=== PATIENT | female | born 1955 | race Caucasian/White ===

== ENCOUNTER 2016-10-05 09:05 | Emergency (ER) | payer MEDICARE, BC ==
[2016-10-05 09:22] VITALS: BP 137/84
--- NOTE | 2016-10-05 10:39 | EDM.PDOC ---
ED HPI GENERAL MEDICAL PROBLEM - General Chief Complaint: Skin Complaint Stated Complaint: POSSIBLE SHINGLES Time Seen by Provider: 10/05/16 09:56 Source of Information: Reports: Patient History Limitations: Reports: No Limitations - History of Present Illness INITIAL COMMENTS - FREE TEXT/NARRATIVE: This lady comes in because of several pustules on her buttocks and she thinks this may be shingles. She's been getting about 1 new pustule daily for the past 4 days. She says they mostly just itch. She's had shingles before and said it was a patch of similar pustules. 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: Neurological History: Reports: Other (See Below) Other Neuro History: passed out one time,b ut never found out why Psychiatric History: Reports: Depression Endocrine/Metabolic History: Reports: Hyperthyroidism - Past Surgical History Musculoskeletal Surgical History: Reports: Shoulder Surgery Social & Family History - Caffeine Use Caffeine Use: Reports: Coffee - Alcohol Use Days Per Week of Alcohol Use: 2 Number of Drinks Per Day: 2 Total Drinks Per Week: 4 - Recreational Drug Use Recreational Drug Use: No ED ROS GENERAL - Review of Systems Review Of Systems: ROS reveals no pertinent complaints other than HPI. ED EXAM, SKIN/RASH Exam: See Below Exam Limited By: No Limitations General Appearance: Alert, WD/WN Skin: Other (On the right buttocks actually nearly the right perianal area there is a group of about 6 pustules they're tiny about 1 mm and there's scattered over an area approximately 5 or 6 cm in diameter so widely scattered. There own each on a about 3 mm reddened face so these could actually be staph but they do not look like shingles. There is no cellulitis associated with this ) Course - Vital Signs Last Recorded V/S: Last Vital Signs Temp 36.2 C 10/05/16 09:31 Pulse 63 10/05/16 09:31 Resp 14 10/05/16 09:31 BP 137/84 10/05/16 09:31 Pulse Ox 97 10/05/16 09:31 Departure - Departure Time of Disposition: 10:37 Disposition: Home, Self-Care 01 Condition: fair Clinical Impression: Perianal rash - Discharge Information Forms: ED Department Discharge Additional Instructions: It's possible the rash could be a very mild case of shingles but it could also be a bacterial infection such as with staff. It's very localized so it should be treatable with an antibiotic ointment. Place the mupirocin ointment to the affected area about 3 times a day for up to one week. This should stop the spread of the pustules. If you feel like you're getting worse than followup with your Dr. or healthcare provider.
== END 2016-10-05 10:46 | disposition home or self-care (01) ==
LOC: JP.ED 09:05
DX: R21 Rash and other nonspecific skin eruption (principal); F32.9 Major depressive disorder, single episode, unspecified; E03.9 Hypothyroidism, unspecified; Z88.2 Allergy status to sulfonamides; Z79.899 Other long term (current) drug therapy; Z98.890 Other specified postprocedural states
CPT/HCPCS: 99282; 99283

== ENCOUNTER 2017-10-03 12:14 | Emergency (ER) | payer MEDICARE, BC ==
[2017-10-03 12:26] VITALS: BP 134/92
[2017-10-03] MEDS ORDERED: cefTRIAXone 1 GM, Lidocaine 1% 2.1 ML IM ONE ×2 (12:49)
--- NOTE | 2017-10-03 12:58 | EDM.PDOC ---
ED HPI GENERAL MEDICAL PROBLEM - General Chief Complaint: Genitourinary Problem Stated Complaint: UTI Time Seen by Provider: 10/03/17 12:30 Source of Information: Reports: Patient History Limitations: Reports: No Limitations - History of Present Illness INITIAL COMMENTS - FREE TEXT/NARRATIVE: Maura presents today with complaints of urinary frequency, pain with urination , bilateral flank pain for two days. She also reports blood in urine since last night. She denies fever or chills, nausea, vomiting or other complaints. She denies frequent UTIs. She has tried pushing oral fluids to help her symptoms. 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: Neurological History: Reports: Other (See Below) Other Neuro History: passed out one time,b ut never found out why Psychiatric History: Reports: Depression Endocrine/Metabolic History: Reports: Hyperthyroidism - Past Surgical History Musculoskeletal Surgical History: Reports: Arthroscopic Knee, Shoulder Surgery Social & Family History - Tobacco Use Smoking Status *Q: Never Smoker - Caffeine Use Caffeine Use: Reports: Coffee - Alcohol Use Days Per Week of Alcohol Use: 1 Number of Drinks Per Day: 2 Total Drinks Per Week: 2 - Recreational Drug Use Recreational Drug Use: No ED ROS GENERAL - Review of Systems Review Of Systems: See Below Constitutional: Denies: Fever, Chills, Malaise, Weakness HEENT: Reports: No Symptoms Respiratory: Denies: Shortness of Breath, Wheezing, Cough, Sputum Cardiovascular: Denies: Chest Pain, Dyspnea on Exertion, Edema, Lightheadedness , Palpitations, PND, Syncope Endocrine: Denies: No Symptoms GI/Abdominal: Denies: Abdominal Pain, Black Stool, Bloody Stool, Constipation, Diarrhea, Distension, Hematochezia, Nausea, Vomiting : Reports: Dysuria, Flank Pain, Frequency, Hematuria, Pain, Urgency, Urinary Retention. Denies: Discharge, Incontinence, Irregular Menses Musculoskeletal: Reports: No Symptoms Skin: Reports: No Symptoms Neurological: Denies: Confusion, Dizziness, Headache, Numbness, Tingling, Weakness Psychiatric: Reports: No Symptoms Hematologic/Lymphatic: Reports: No Symptoms Immunologic: Reports: No Symptoms ED EXAM, RENAL/ - Physical Exam Exam: See Below Text/Narrative:: Maura is an alert and oriented 61 year old female presenting today with complaints of urinary frequency, dysuria, hematuria, bilateral flank pain for 2 days. Pushing oral fluids did not help her symptoms. Exam Limited By: No Limitations General Appearance: Alert, WD/WN, Mild Distress Eye Exam: Bilateral Eye: EOMI, PERRL Ears: Normal External Exam, Normal Canal, Hearing Grossly Normal, Normal TMs Nose: Normal Inspection, Normal Mucosa, No Blood Throat/Mouth: Normal Inspection, Normal Lips, Normal Teeth, Normal Gums, Normal Oropharynx, Normal Voice, No Airway Compromise Head: Atraumatic, Normocephalic Neck: Normal Inspection, Supple, Non-Tender, Full Range of Motion. No: Lymphadenopathy (R), Lymphadenopathy (L) Respiratory/Chest: No Respiratory Distress, Lungs Clear, Normal Breath Sounds, No Accessory Muscle Use, Chest Non-Tender Cardiovascular: Normal Peripheral Pulses, Regular Rate, Rhythm, No Edema, No Murmur, No Rub GI/Abdominal: Normal Bowel Sounds, Soft, Non-Tender, No Distention Back Exam: Full Range of Motion, CVA Tenderness (R), CVA Tenderness (L). No: Decreased Range of Motion, Muscle Spasm Extremities: Normal Inspection, Normal Range of Motion, Non-Tender, No Pedal Edema, Normal Capillary Refill Neurological: Alert, Oriented, CN II-XII Intact, Normal Cognition, Normal Gait, Normal Reflexes, No Motor/Sensory Deficits Psychiatric: Normal Affect, Normal Mood Skin Exam: Warm, Dry, Intact, Normal Color, No Rash Lymphatic: No Adenopathy Course - Vital Signs Last Recorded V/S: Last Vital Signs Temp 36.0 C 10/03/17 12:29 Pulse 77 10/03/17 12:29 Resp 18 10/03/17 12:29 BP 134/92 H 10/03/17 12:29 Pulse Ox 99 10/03/17 12:29 - Orders/Labs/Meds Orders: Active Orders 24 hr Category Date Time Status CULTURE URINE [RM] Stat Lab 10/03/17 13:17 Received UA W/MICROSCOPIC [URIN] Stat Lab 10/03/17 12:20 Ordered Labs: Laboratory Tests 10/03/17 Range/Units 12:20 Urine Color Yellow Urine Appearance Cloudy Urine pH 8.0 (4.5-8.0) Ur Specific [place] 1.015 (1.008-1.030) Urine Protein Negative (NEGATIVE) mg/dL Urine Glucose (UA) Normal (NEGATIVE) mg/dL Urine Ketones Negative (NEGATIVE) mg/dL Urine Occult Blood Large (NEGATIVE) Urine Nitrite Negative (NEGATIVE) Urine Bilirubin Negative (NEGATIVE) Urine Urobilinogen Normal (NORMAL) mg/dL Ur Leukocyte Esterase Large (NEGATIVE) Urine RBC Packed H (0-5) Urine WBC Packed H (0-5) Ur Epithelial Cells Few Amorphous Sediment Not seen Urine Bacteria Many Urine Mucus Not seen UA positive for occult blood, packed RBC, WBC, large leukocyte, many bacteria. +flank pain Vital signs stable Currently takes hydroxychloroquine for iritis. She will be treated for acute UTI, pyelonephritis with ceftriaxone 1 gram IM, ciprofloxacin 500mg PO BID for 7 days. Pyridium for pain. Meds: Medications Discontinued Medications Generic Name Dose Route Start Last Admin Trade Name Freq PRN Reason Stop Dose Admin Ceftriaxone Sodium 1 gm/ 0 gm 10/03/17 12:49 10/03/17 12:56 Lidocaine HCl 2.1 ml IM 10/03/17 12:50 1 inj ONETIME ONE Administration Departure - Departure Time of Disposition: 13:09 Disposition: Home, Self-Care 01 Condition: Good Clinical Impression: UTI, Urinary tract infectious disease, Pyelonephritis - Discharge Information Instructions: Urinary Tract Infection, Adult, Pyelonephritis, Pediatric, Easy- to-Read Referrals: PCP,None [Primary Care Provider] - Forms: ED Department Discharge Additional Instructions: You have been evaluated and treated for acute urinary tract infection and pyelonephpritis. Ceftriaxone (antibiotic) 1 gram IM administered in the emergency room. Take ciprofloxacin 500mg by mouth twice per day for 7 days for infection. You may take pyridium for pain/discomfort up to three times a day as needed. This medication can cause your urine to be bright orange and may stain contact lenses - do not wear contacts when taking it. Ibuprofen and acetaminophen for pain as needed. Keep yourself hydrated with plenty of water. Eat a regular diet. Hydroxychloroquine can sometimes suppress the immune system. It is very important for you to return at any time for worsening, fevers, chills, change in your mental status, confusion or any other concerns for further care. Follow up with your primary provider in 7 to 10 days or earlier for a recheck of your status. - My Orders Last 24 Hours: My Active Orders 10/03/17 12:20 UA W/MICROSCOPIC [URIN] Stat 10/03/17 13:17 CULTURE URINE [RM] Stat - Assessment/Plan Last 24 Hours: My Active Orders 10/03/17 12:20 UA W/MICROSCOPIC [URIN] Stat 10/03/17 13:17 CULTURE URINE [RM] Stat Assessment:: Acute urinary tract infection Pyelonephritis Plan: Patient evaluated and treated for acute urinary tract infection and pyelonephpritis. We will notify her if urine culture reports a change in antibiotic. Ceftriaxone (antibiotic) 1 gram IM administered in the emergency room. Take ciprofloxacin 500mg by mouth twice per day for 7 days for infection. She may take pyridium for pain/discomfort up to three times a day as needed. This medication can cause her urine to be bright orange and may stain contact lenses - do not wear contacts when taking it. Ibuprofen and acetaminophen for pain as needed. Keep hydrated with plenty of water. Eat a regular diet. Hydroxychloroquine can sometimes suppress the immune system. It is very important for to return at any time for worsening, fevers, chills, change in mental status, confusion or any other concerns for further care. She will return in 48 hours if no improvement. Follow up with primary provider in 7 to 10 days or earlier for a recheck of your status.
== END 2017-10-03 13:25 | disposition home or self-care (01) ==
LOC: JP.ED 12:14
DX: N12 Tubulo-interstitial nephritis, not specified as acute or chronic (principal); F32.9 Major depressive disorder, single episode, unspecified; E05.90 Thyrotoxicosis, unspecified without thyrotoxic crisis or storm; Z88.2 Allergy status to sulfonamides
CPT/HCPCS: 81001; 87086; 87088; 87186; 99284; J0696

== ENCOUNTER 2020-01-01 13:03 | Emergency (ER) | payer MEDICARE, BC ==
[2020-01-01 13:25] VITALS: BP 149/78; PULSE 60
--- NOTE | 2020-01-01 14:00 | EDM.PDOC ---
ED HPI GENERAL MEDICAL PROBLEM - General Chief Complaint: ENT Problem Stated Complaint: R EAR PAIN WITH HEADACHE Time Seen by Provider: 01/01/20 13:45 Source of Information: Reports: Patient, Old Records History Limitations: Reports: No Limitations - History of Present Illness INITIAL COMMENTS - FREE TEXT/NARRATIVE: 64 yo female presents with a couple day hx of R ear pain. No cold sx's. No fever. No change in hearing. She feels a funny taste on the right side of her tongue. There is no dental pain with biting down. Has not noted any swollen glands. Onset: Gradual Onset Date: 12/29/19 Duration: Day(s):, Getting Worse Location: Reports: Face (R ear area) Quality: Reports: Ache Severity: Moderate Improves with: Reports: None Worsens with: Reports: Other (? time) Context: Reports: Other (See HPI) Associated Symptoms: Reports: No Other Symptoms. Denies: Fever/Chills, Loss of Appetite, Malaise, Nausea/Vomiting, Rash Treatments [employer]CH[employer]ISING [employer]NS[employer]: Reports: Other (see below) (none) Right Cheek Pain Score (Numeric/FACES): 6 - Related Data Allergies Allergy/AdvReac Type Severity Reaction Status Date / Time Sulfa (Sulfonamide Allergy Unknown Unknown Verified 01/01/20 13:28 Antibiotics) Home Meds: Home Meds FLUoxetine [PROzac] 20 mg PO DAILY 10/05/16 [History] Levothyroxine [Sythroid] 100 mcg PO DAILY 10/05/16 [History] Gabapentin [Neurontin] 300 mg PO BEDTIME 10/03/17 [History] Hydroxychloroquine [Plaquenil] 400 mg PO DAILY 10/03/17 [History] Cyclobenzaprine [Flexeril] 10 mg PO BEDTIME #10 tab 01/01/20 [Rx] 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: Musculoskeletal History: Reports: Arthritis, Back Pain, Chronic Neurological History: Reports: Other (See Below) Other Neuro History: passed out one time,b ut never found out why Psychiatric History: Reports: Depression Endocrine/Metabolic History: Reports: Hyperthyroidism - Past Surgical History Head Surgeries/Procedures: Reports: None Endocrine Surgical History: Reports: None Neurological Surgical History: Reports: None Musculoskeletal Surgical History: Reports: Arthroscopic Knee, Shoulder Surgery Dermatological Surgical History: Reports: None Social & Family History - Tobacco Use Smoking Status *Q: Never Smoker Second Hand Smoke Exposure: No - Caffeine Use Caffeine Use: Reports: Coffee, Soda - Alcohol Use Days Per Week of Alcohol Use: 7 Number of Drinks Per Day: 2 Total Drinks Per Week: 14 - Recreational Drug Use Recreational Drug Use: No ED ROS ENT - Review of Systems Review Of Systems: See Below Constitutional: Reports: No Symptoms HEENT: Reports: Ear Pain (right). Denies: Dental Pain, Ear Discharge, Hearing Loss, Nose Pain, Rhinitis, Sinus Problem, Throat Pain, Throat Swelling Respiratory: Reports: No Symptoms Cardiovascular: Reports: No Symptoms Endocrine: Reports: No Symptoms GI/Abdominal: Reports: No Symptoms : Reports: No Symptoms Musculoskeletal: Reports: No Symptoms Skin: Reports: No Symptoms Neurological: Reports: No Symptoms ED EXAM, ENT - Physical Exam Exam: See Below Exam Limited By: No Limitations General Appearance: Alert, WD/WN, No Apparent Distress Eye Exam: Bilateral Eye: Normal Inspection Ears: Normal External Exam, Normal Canal, Hearing Grossly Normal, Normal TMs, TM Obscured by Cerumen (on right, small amt of TM seen is normal. ), Other (there is pain with pressure over the R tragus while she opens and closes her mouth. ). No: Auricular Tenderness, Canal Discharge, Canal Swelling, TM Bulging, TM Erythema, TM Fluid, TM Perforation Mouth/Throat: Normal Inspection, Normal Lips, Normal Oropharynx, Normal Teeth, Other (no swollen salivary glands). No: Dental Pain, Hoarse Voice, Lip Swelling, Muffled Voice, Pharyngeal Erythema, Tonsillar Erythema, Tonsillar Exudates, Tonsillar Swelling, Uvular Deviation, Uvular Edema Head: Atraumatic, Normocephalic Neck: Normal Inspection. No: Lymphadenopathy (R), Lymphadenopathy (L) Respiratory/Chest: No Respiratory Distress, Lungs Clear, Normal Breath Sounds, No Accessory Muscle Use Cardiovascular: Regular Rate, Rhythm Extremities: Normal Inspection Neurological: Alert, Oriented, CN II-XII Intact, Normal Cognition, No Motor/Sensory Deficits Psychiatric: Normal Affect, Normal Mood Skin: Warm, Dry, Intact, Normal Color, No Rash Course - Vital Signs Last Recorded V/S: Last Vital Signs Temp 35.8 C L 01/01/20 13:27 Pulse 60 01/01/20 13:27 Resp 13 01/01/20 13:27 BP 149/78 H 01/01/20 13:27 Pulse Ox 97 01/01/20 13:27 Departure - Departure Time of Disposition: 14:06 Disposition: Home, Self-Care 01 Condition: Good Clinical Impression: Right temporomandibular joint disorder, unspecified, Excessive cerumen in right ear canal, Dysgeusia - Discharge Information *PRESCRIPTION DRUG MONITORING PROGRAM REVIEWED*: No *COPY OF PRESCRIPTION DRUG MONITORING REPORT IN PATIENT KALIE: No Referrals: Johnnie Cooper MD [Primary Care Provider] - Additional Instructions: Take Aleve 2 every 12 hrs with food for your pain. Eat a soft diet only. Avoid opening your mouth widely. No gum chewing. You may benefit from sucking on sugar-free candy to help remove the taste in your mouth. Try the Flexeril at bedtime to reduce any jaw clenching. If not improving see your family doctor and/or dentist(may prescribe a mouth guard for night time use). Debrox or Murine Ear Wax Removal Kit for right ear wax removal. Sepsis Event Note (ED) - Evaluation Sepsis Screening Result: No Definite Risk - Focused Exam Vital Signs: Vital Signs Temp Pulse Resp BP Pulse Ox 01/01/20 13:27 35.8 C L 60 13 149/78 H 97 01/01/20 13:24 35.8 C L 60 13 149/78 H 97
== END 2020-01-01 14:19 | disposition home or self-care (01) ==
LOC: JP.ED 13:03
DX: H61.21 Impacted cerumen, right ear (principal); M26.601 Right temporomandibular joint disorder, unspecified; R43.2 Parageusia; F32.9 Major depressive disorder, single episode, unspecified; E05.90 Thyrotoxicosis, unspecified without thyrotoxic crisis or storm; Z88.2 Allergy status to sulfonamides; Z79.899 Other long term (current) drug therapy
CPT/HCPCS: 99282

== ENCOUNTER 2021-09-24 14:30 | Emergency (ER) | payer MEDICARE, BC ==
[2021-09-24 15:33] VITALS: BP 144/71; PULSE 58
== END 2021-09-24 15:49 | disposition home or self-care (01) ==
LOC: JP.ED 14:30
DX: R07.89 Other chest pain (principal); R55 Syncope and collapse; Z79.899 Other long term (current) drug therapy; Z88.2 Allergy status to sulfonamides
CPT/HCPCS: 36415; 80048; 84484; 85025; 93005; 93010; 99282; 99283-25

== ENCOUNTER 2022-10-13 06:27 | Emergency (ER) | payer MEDICARE, BC ==
[2022-10-13 06:41] VITALS: BP 164/72; PULSE 58
[2022-10-13] MEDS ORDERED: Lidocaine 1% 5 ML VIAL INJECT ONE (07:04)
[2022-10-13] MEDS ORDERED: Doxycycline 100 MG Cap PO ONE (07:05)
[2022-10-13] MEDS ORDERED: Bacitracin Oint 1 GM U/D Packet TOP ONE (07:06)
== END 2022-10-13 07:28 | disposition home or self-care (01) ==
LOC: JP.ED 06:27
DX: S20.461A Insect bite (nonvenomous) of right back wall of thorax, initial encounter (principal); E03.9 Hypothyroidism, unspecified; Z88.2 Allergy status to sulfonamides; Z79.899 Other long term (current) drug therapy; Z98.890 Other specified postprocedural states; W57.XXXA Bitten or stung by nonvenomous insect and other nonvenomous arthropods, initial encounter
CPT/HCPCS: 10120; 99281; A9270